=== PATIENT | female | born 1940 | race Caucasian/White ===

== ENCOUNTER 2024-06-24 15:32 | Inpatient (IN) | payer MEDICARE, MEDICAID ==
[~2024-06-24] VITALS: Ht 170.2 cm; Wt 87.9 kg
[2024-06-24 16:28] LABS: BASOPHILS # (AUTO) 0.1 X10'3 (0-0.2); EOSINOPHILS % (AUTO) 0.1 % (0-6); HEMATOCRIT 31.3 % (35.0-45.0); LYMPHOCYTES # (AUTO) 3.4 X10'3 (1.1-4.8); LYMPHOCYTES % (AUTO) 34.4 % (21-51); MEAN CORPUSCULAR HEMOGLOBIN 30.5 PG (27.0-31.0); MEAN CORPUSCULAR HGB CONC 32.1 g/dL (33.0-36.5); MEAN CORPUSCULAR VOLUME 95.2 FL (78-98); MEAN PLATELET VOLUME 7.2 FL (7.4-10.4); MONOCYTES # (AUTO) 1.1 X10'3 (0-0.9); MONOCYTES % (AUTO) 11.2 % (2-12); NEUTROPHILS # (AUTO) 5.3 X10'3 (1.8-7.7); NEUTROPHILS % (AUTO) 53.3 % (42-75); PLATELET COUNT 323 X10'3 (140-440); RED BLOOD COUNT 3.29 X10'6 (4.20-5.60); RED CELL DISTRIBUTION WIDTH 15.1 % (11.5-14.5)
[2024-06-24 16:45] LABS: APTT 31 SECONDS (22-32); INR 1.3 INR; PROTHROMBIN TIME 13.1 SECONDS (9.0-12.0)
[2024-06-24] MEDS: piperacillin/tazo 3.375gm/50ml 50 ML IV STA (16:46)
[2024-06-24] MEDS: morphine 4 MG/ML inj SYRINge IV ONE (16:49)
[2024-06-24 16:50] LABS: ALBUMIN 2.4 G/DL (3.4-5.0); ALBUMIN/GLOBULIN RATIO 0.5 (1.1-1.5); ALKALINE PHOSPHATASE 100 IU/L (46-116); ANION GAP 8 (8-16); ASPARTATE AMINO TRANSFERASE 10 U/L (10-37); BILIRUBIN,TOTAL 1.1 MG/DL (0.1-1.0); BLOOD UREA NITROGEN 13 MG/DL (7-18); BUN/CREATININE RATIO 17.1 (10.0-20.0); CALCIUM 8.7 MG/DL (8.5-10.1); CHLORIDE 102 MMOL/L (99-107); CREATININE 0.76 MG/DL (0.40-0.90); GLUCOSE 98 MG/DL (70-104); POTASSIUM 3.7 MMOL/L (3.5-5.1); SODIUM 135 MMOL/L (135-145); TOTAL CARBON DIOXIDE 25.5 MMOL/L (24-32); TOTAL PROTEIN 7.2 G/DL (6.4-8.2); eCRCL 54 ML/MIN; eGFR 73 ML/MIN
[2024-06-24 16:52] LABS: ALANINE AMINOTRANSFERASE < 6 U/L (12-78)
[2024-06-24] MEDS: normal saline 1000ml 1,000 ML IVB ONE (17:05)
[2024-06-24] MEDS: HYDROmorphone 1 mg/ml syringe IV ONE (17:20)
[2024-06-24] MEDS ORDERED: NO HOME MEDS (17:33)
[2024-06-24] MEDS ORDERED: potassium Cl 20 mEq SR tablet PO PRN (17:40)
[2024-06-24] MEDS ORDERED: magnesium Cl slow-release 64mg tablet PO PRN (17:40)
[2024-06-24] MEDS ORDERED: ondansetron/PF 4mg/2ml inj IV PRN (17:40)
[2024-06-24] MEDS ORDERED: magnesium sulf-water 4G/100mL 100 ML IV PRN (17:40)
[2024-06-24] MEDS ORDERED: potassium Cl 40MEQ/1/2NS 520ml 520 ML IV PRN (17:40)
[2024-06-24] MEDS ORDERED: acetaminophen 325mg tablet PO PRN ×2 (17:40)
[2024-06-24] MEDS ORDERED: magnesium sulf-water 2g/50mL 50 ML IV PRN (17:40)
[2024-06-24] MEDS ORDERED: mag hydrox/Alum hydrox/simeth 30ml oral suspension PO PRN (17:40)
[2024-06-24 18:07] LABS: HEMOGLOBIN A1C 5.5 % (4.5-6.2)
[2024-06-24] MEDS: normal saline 1000ml 1,000 ML IV ONE (18:22)
[2024-06-24] MEDS: morphine 2 MG/ML inj. syringe IV PRN (18:30)
[2024-06-24] MEDS: normal saline 1000ml 1,000 ML IV SCH (19:00)
[2024-06-24] MEDS: metoprolol tartrate 50mg tablet PO ONE (19:08)
[2024-06-24] MEDS ORDERED: ALPRAZolam 0.25mg tablet PO PRN (19:15)
[2024-06-24] MEDS ORDERED: iohexol 300mg/ml 100ml inj. ONE (19:32)
[2024-06-24] MEDS: K and/or MAG REPLACEMENT MC SCH (19:43)
[2024-06-24] MEDS: VANCOMYCIN 1,500MG inj. 1,500 MG in normal saline 500ml IV soln 300 ML IV ONE (20:24)
[2024-06-24] MEDS: heparin, porcine 5000 units/ml vial SQ SCH (20:27)
[2024-06-24] MEDS: ALPRAZolam 0.5mg tablet PO PRN (20:49)
[2024-06-24] MEDS: piperacillin/tazo 3.375gm/50ml 50 ML IV SCH (23:53)
[2024-06-25] VITALS (22 sets, daily range): BP systolic 126–157; BP diastolic 62–92; PULSE 88–116; RESP 15–22; TEMP 97.5–98.1; O2SAT 93–100
[2024-06-25 00:33] LABS: CLARITY,URINE SLIGHTLY CLOUDY (Clear); COLOR,URINE YELLOW (Yellow); UA COLLECTION TYPE CLN CATCH MIDSTREAM
[2024-06-25 00:34] LABS: GLUCOSE, URINE NEGATIVE (Neg); KETONES,URINE NEGATIVE (Neg); PH,URINE >=9.0 (4.8-8.0); PROTEIN,URINE 100 mg/dl (Neg)
[2024-06-25 00:35] LABS: BILIRUBIN,URINE NEGATIVE (Neg); LEUKOCYTE ESTERASE ,URINE SMALL (Neg); NITRITES, URINE POSITIVE (Neg); OCCULT BLOOD,URINE MODERATE (Neg); UROBILINOGEN,URINE 0.2 E.U/dL (0.2-1.0)
[2024-06-25 00:37] LABS: BACTERIA,URINE 4+ /HPF (Neg); SQUAMOUS EPITHELIAL CELL,UR FEW /LPF (FEW); TRANSITIONAL EPI CELLS,URINE FEW /HPF; WBC,URINE 20-30 /HPF (0-4)
[2024-06-25 00:38] LABS: AMORPHOUS PHOSPHATES 1+; TRIPLE PHOSPHATE CRYST 2+ /HPF (NEGATIVE)
[2024-06-25] MEDS: LORazepam 1 MG tablet PO PRN (02:54)
[2024-06-25 02:55] LABS: BASOPHILS % (AUTO) 0.1 % (0-1); EOSINOPHILS % (AUTO) 0.1 % (0-6); HEMATOCRIT 29.2 % (35.0-45.0); HEMOGLOBIN 9.5 g/dl (12.0-16.0); LYMPHOCYTES # (AUTO) 2.8 X10'3 (1.1-4.8); MEAN CORPUSCULAR HEMOGLOBIN 30.6 PG (27.0-31.0); MEAN CORPUSCULAR HGB CONC 32.5 g/dL (33.0-36.5); MEAN CORPUSCULAR VOLUME 94.2 FL (78-98); MEAN PLATELET VOLUME 7.6 FL (7.4-10.4); MONOCYTES % (AUTO) 10.1 % (2-12); NEUTROPHILS % (AUTO) 60.7 % (42-75); PLATELET COUNT 297 X10'3 (140-440); WHITE BLOOD COUNT 9.8 X10'3 (4.5-11.0)
[2024-06-25 03:07] LABS: % IRON SATURATION 11 % (11-46); IRON 22 UG/DL (49-151); TOTAL IRON BINDING CAPACITY 196 UG/DL (259-388)
[2024-06-25 03:12] LABS: ALBUMIN 2.2 G/DL (3.4-5.0); ALBUMIN/GLOBULIN RATIO 0.5 (1.1-1.5); ALKALINE PHOSPHATASE 92 IU/L (46-116); ANION GAP 9 (8-16); ASPARTATE AMINO TRANSFERASE 10 U/L (10-37); BILIRUBIN,TOTAL 0.8 MG/DL (0.1-1.0); BLOOD UREA NITROGEN 12 MG/DL (7-18); BUN/CREATININE RATIO 17.6 (10.0-20.0); CALCIUM 8.2 MG/DL (8.5-10.1); CHLORIDE 103 MMOL/L (99-107); CHOL/HDL RATIO 2.7 (0.00-4.99); CHOLESTEROL 91 MG/DL (0-200); CREATININE 0.68 MG/DL (0.40-0.90); GLUCOSE 87 MG/DL (70-104); HDL CHOLESTEROL 34 MG/DL (35-60); LDL CHOLESTEROL 45 MG/DL (50-100); MAGNESIUM 1.7 MG/DL (1.5-2.4); POTASSIUM 3.7 MMOL/L (3.5-5.1); SODIUM 136 MMOL/L (135-145); TOTAL CARBON DIOXIDE 24.5 MMOL/L (24-32); TOTAL PROTEIN 6.9 G/DL (6.4-8.2); TRIGLYCERIDES 63 MG/DL (20-135); eCRCL 60 ML/MIN; eGFR 82 ML/MIN
[2024-06-25 03:14] LABS: ALANINE AMINOTRANSFERASE < 6 U/L (12-78)
[2024-06-25] MEDS: pantoprazole 40mg Tablet.DR PO SCH (07:30)
[2024-06-25] MEDS: metoprolol tartrate 50mg tablet PO ONE (09:01)
[2024-06-25] MEDS: BUPIVAcaine 2.5mg/ml inj 50ml vial (contains preservative) ONE (12:41)
[2024-06-25] MEDS ORDERED: sevoflurane 250ml liquid IH ONE (13:19)
[2024-06-25] MEDS ORDERED: rocuronium 10mg/ml inj IV ONE (13:24)
[2024-06-25] MEDS ORDERED: fentaNYL/PF 50MCG/1 ML 2ML syringe ONE (13:24)
[2024-06-25] MEDS ORDERED: propofol inj 20 ML IV ONE (13:24)
[2024-06-25] MEDS ORDERED: proCHLORperazine 10 MG/2 ml inj IV PRN (13:40)
[2024-06-25] MEDS ORDERED: ondansetron/PF 4mg/2ml inj IV PRN (13:40)
[2024-06-25] MEDS ORDERED: meperidine/PF 25mg/ml syringe IV PRN ×3 (13:40)
[2024-06-25] MEDS ORDERED: morphine 2 MG/ML inj. syringe IV PRN (13:40)
[2024-06-25] MEDS ORDERED: morphine 4 MG/ML inj SYRINge IV PRN (13:40)
[2024-06-25] MEDS ORDERED: sugammadex 200mg/2ml injection IV ONE (14:11)
[2024-06-25] MEDS: ringers solution, lacted 1,000 ML IV SCH (16:37)
[2024-06-25] MEDS: dextrose 5%-1/2 normal saline 1,000 ML IV SCH (19:49)
[2024-06-25] MEDS: metoprolol tartrate 25mg tablet PO SCH (21:08)
[2024-06-26 02:00] VITALS: BP 135/70; PULSE 88; RESP 16; TEMP 98.2; O2SAT 98
[2024-06-26 05:05] LABS: BASOPHILS % (AUTO) 0.3 % (0-1); EOSINOPHILS % (AUTO) 0.4 % (0-6); HEMOGLOBIN 9.4 g/dl (12.0-16.0); LYMPHOCYTES # (AUTO) 3.1 X10'3 (1.1-4.8); LYMPHOCYTES % (AUTO) 39.5 % (21-51); MEAN CORPUSCULAR HEMOGLOBIN 30.7 PG (27.0-31.0); MEAN CORPUSCULAR HGB CONC 32.4 g/dL (33.0-36.5); MEAN CORPUSCULAR VOLUME 94.5 FL (78-98); MEAN PLATELET VOLUME 7.3 FL (7.4-10.4); MONOCYTES # (AUTO) 0.9 X10'3 (0-0.9); MONOCYTES % (AUTO) 11.2 % (2-12); NEUTROPHILS # (AUTO) 3.7 X10'3 (1.8-7.7); NEUTROPHILS % (AUTO) 48.6 % (42-75); PLATELET COUNT 289 X10'3 (140-440); RED BLOOD COUNT 3.07 X10'6 (4.20-5.60); RED CELL DISTRIBUTION WIDTH 14.9 % (11.5-14.5); WHITE BLOOD COUNT 7.7 X10'3 (4.5-11.0)
[2024-06-26 05:35] LABS: ALANINE AMINOTRANSFERASE 6 U/L (12-78); ALBUMIN 2.1 G/DL (3.4-5.0); ALBUMIN/GLOBULIN RATIO 0.5 (1.1-1.5); ALKALINE PHOSPHATASE 88 IU/L (46-116); ANION GAP 8 (8-16); ASPARTATE AMINO TRANSFERASE 15 U/L (10-37); BILIRUBIN,TOTAL 0.7 MG/DL (0.1-1.0); BLOOD UREA NITROGEN 9 MG/DL (7-18); BUN/CREATININE RATIO 12.5 (10.0-20.0); CALCIUM 8.1 MG/DL (8.5-10.1); CHLORIDE 104 MMOL/L (99-107); CREATININE 0.72 MG/DL (0.40-0.90); GLUCOSE 77 MG/DL (70-104); MAGNESIUM 1.8 MG/DL (1.5-2.4); POTASSIUM 3.5 MMOL/L (3.5-5.1); SODIUM 137 MMOL/L (135-145); TOTAL CARBON DIOXIDE 25.3 MMOL/L (24-32); TOTAL PROTEIN 6.4 G/DL (6.4-8.2); eCRCL 57 ML/MIN; eGFR 77 ML/MIN
[2024-06-26 06:00] VITALS: BP 157/87; PULSE 100; RESP 18; TEMP 98.4; O2SAT 94
[2024-06-26] MEDS: HYDROcodone/acetaminophen 5mg/325mg tablet PO PRN (06:36)
[2024-06-26 10:00] VITALS: BP 160/78; PULSE 92; RESP 20; TEMP 98.3; O2SAT 95
[2024-06-26] MEDS: JUVEN Shake w/Arg/Glut/Ca2+Bmb (Juven 19.3gm) pkt 240ml PO SCH (12:30)
[2024-06-26] MEDS: vancomycin 1,750 MG in NS 350ml IV soln IV ONE (15:11)
[2024-06-26 18:00] VITALS: BP 128/67; PULSE 91; RESP 18; TEMP 97.9; O2SAT 96
[2024-06-26] MEDS: apixaban 5mg tablet PO SCH (19:29)
[2024-06-26 20:00] VITALS: RESP 18; O2SAT 96
[2024-06-26 22:00] VITALS: BP 120/65; PULSE 99; RESP 22; TEMP 98.3; O2SAT 91
[2024-06-27] VITALS (7 sets, daily range): BP systolic 110–127; BP diastolic 65–76; PULSE 69–98; RESP 16–18; TEMP 97–98.2; O2SAT 92–95
[2024-06-27] MEDS: vancomycin/NS 1 GM ADD-VANTAGE 250 ML IV SCH (04:12)
[2024-06-27 06:45] LABS: BASOPHILS % (AUTO) 0.1 % (0-1); EOSINOPHILS # (AUTO) 0.1 X10'3 (0-0.9); EOSINOPHILS % (AUTO) 1.1 % (0-6); HEMATOCRIT 27.5 % (35.0-45.0); LYMPHOCYTES # (AUTO) 2.6 X10'3 (1.1-4.8); MEAN CORPUSCULAR HEMOGLOBIN 30.7 PG (27.0-31.0); MEAN CORPUSCULAR HGB CONC 32.6 g/dL (33.0-36.5); MEAN CORPUSCULAR VOLUME 94.2 FL (78-98); MEAN PLATELET VOLUME 7.2 FL (7.4-10.4); MONOCYTES # (AUTO) 0.6 X10'3 (0-0.9); MONOCYTES % (AUTO) 10.6 % (2-12); NEUTROPHILS # (AUTO) 2.8 X10'3 (1.8-7.7); NEUTROPHILS % (AUTO) 46.2 % (42-75); PLATELET COUNT 286 X10'3 (140-440); RED BLOOD COUNT 2.92 X10'6 (4.20-5.60); WHITE BLOOD COUNT 6.1 X10'3 (4.5-11.0)
[2024-06-27 07:11] LABS: ALANINE AMINOTRANSFERASE 6 U/L (12-78); ALBUMIN 1.9 G/DL (3.4-5.0); ALBUMIN/GLOBULIN RATIO 0.5 (1.1-1.5); ALKALINE PHOSPHATASE 75 IU/L (46-116); ANION GAP 4 (8-16); ASPARTATE AMINO TRANSFERASE 15 U/L (10-37); BILIRUBIN,TOTAL 0.6 MG/DL (0.1-1.0); BLOOD UREA NITROGEN 6 MG/DL (7-18); CALCIUM 7.8 MG/DL (8.5-10.1); CHLORIDE 105 MMOL/L (99-107); CREATININE 0.67 MG/DL (0.40-0.90); FERRITIN 217 NG/ML (8-252); GLUCOSE 95 MG/DL (70-104); MAGNESIUM 1.7 MG/DL (1.5-2.4); POTASSIUM 3.3 MMOL/L (3.5-5.1); SODIUM 136 MMOL/L (135-145); TOTAL CARBON DIOXIDE 26.6 MMOL/L (24-32); TOTAL PROTEIN 6.1 G/DL (6.4-8.2); eCRCL 61 ML/MIN; eGFR 84 ML/MIN
[2024-06-27] MEDS: magnesium hydroxide 30ml (MOM) UD suspension PO PRN (07:30)
[2024-06-27] MEDS: CefTRIAXone/D5W-Rocephin 1gm 50 ML IV SCH (10:26)
[2024-06-27] MEDS ORDERED: iohexol 350MG/ML 100ml bottle IV ONE (12:31)
[2024-06-27] MEDS ORDERED: iohexol 350 MG/ML 50ML vial IV ONE (12:31)
[2024-06-27] MEDS: lactose-reduced food (Ensure Enlive) - 237ml bottle PO SCH (13:10)
[2024-06-27] MEDS: potassium Cl 20 mEq SR tablet PO PRN ×2 (14:02→19:43)
[2024-06-27] MEDS: morphine 2 MG/ML inj. syringe IV ONE (15:05)
[2024-06-27] MEDS ORDERED: potassium Cl 40MEQ/1/2NS 520ml 520 ML IV PRN (17:50)
[2024-06-27] MEDS ORDERED: magnesium sulf-water 4G/100mL 100 ML IV PRN (17:50)
[2024-06-27] MEDS ORDERED: magnesium sulf-water 2g/50mL 50 ML IV PRN (17:50)
[2024-06-27] MEDS ORDERED: potassium Cl 20 mEq SR tablet PO PRN (17:50)
[2024-06-27] MEDS ORDERED: magnesium Cl slow-release 64mg tablet PO PRN (17:50)
[2024-06-28] MEDS ORDERED: VANCOMYCIN LEVEL IV ONE (02:30)
[2024-06-28 06:00] VITALS: PULSE 98; RESP 20; TEMP 97.5; O2SAT 94
[2024-06-28 06:12] LABS: BASOPHILS % (AUTO) 0.3 % (0-1); EOSINOPHILS # (AUTO) 0.1 X10'3 (0-0.9); EOSINOPHILS % (AUTO) 1.3 % (0-6); HEMATOCRIT 27.3 % (35.0-45.0); HEMOGLOBIN 8.9 g/dl (12.0-16.0); LYMPHOCYTES # (AUTO) 2.4 X10'3 (1.1-4.8); LYMPHOCYTES % (AUTO) 50.4 % (21-51); MEAN CORPUSCULAR HEMOGLOBIN 30.5 PG (27.0-31.0); MEAN CORPUSCULAR HGB CONC 32.6 g/dL (33.0-36.5); MEAN CORPUSCULAR VOLUME 93.6 FL (78-98); MEAN PLATELET VOLUME 7.2 FL (7.4-10.4); MONOCYTES # (AUTO) 0.5 X10'3 (0-0.9); MONOCYTES % (AUTO) 11.2 % (2-12); NEUTROPHILS # (AUTO) 1.8 X10'3 (1.8-7.7); NEUTROPHILS % (AUTO) 36.8 % (42-75); PLATELET COUNT 302 X10'3 (140-440); RED BLOOD COUNT 2.92 X10'6 (4.20-5.60); RED CELL DISTRIBUTION WIDTH 14.9 % (11.5-14.5); WHITE BLOOD COUNT 4.8 X10'3 (4.5-11.0)
[2024-06-28 06:20] LABS: ALANINE AMINOTRANSFERASE 8 U/L (12-78); ALBUMIN 1.8 G/DL (3.4-5.0); ALBUMIN/GLOBULIN RATIO 0.4 (1.1-1.5); ALKALINE PHOSPHATASE 77 IU/L (46-116); ANION GAP 2 (8-16); ASPARTATE AMINO TRANSFERASE 15 U/L (10-37); BILIRUBIN,TOTAL 0.4 MG/DL (0.1-1.0); BLOOD UREA NITROGEN 6 MG/DL (7-18); BUN/CREATININE RATIO 8.3 (10.0-20.0); CALCIUM 7.8 MG/DL (8.5-10.1); CHLORIDE 106 MMOL/L (99-107); CREATININE 0.72 MG/DL (0.40-0.90); GLUCOSE 105 MG/DL (70-104); POTASSIUM 3.7 MMOL/L (3.5-5.1); SODIUM 137 MMOL/L (135-145); VANCOMYCIN,TROUGH 9.5 ug/mL (10.0-20.0); eCRCL 57 ML/MIN; eGFR 77 ML/MIN
[2024-06-28 10:00] VITALS: BP 132/70; PULSE 82; RESP 25; TEMP 98.4; O2SAT 96
[2024-06-28] MEDS: LORazepam 0.5 MG tablet PO PRN (14:35)
[2024-06-28] MEDS ORDERED: iohexol 350MG/ML 100ml bottle IV ONE (14:39)
[2024-06-28] MEDS: morphine 2 MG/ML inj. syringe IV PRN (14:43)
[2024-06-28] MEDS: zinc sulfate 220mg capsule PO SCH (16:22)
[2024-06-28] MEDS: gabapentin 400mg capsule PO SCH (16:23)
[2024-06-28] MEDS: MULTIVIT-MIN/FERROUS GLUCONATE 9 MG/15 ML LIQUID PO SCH (16:23)
[2024-06-28 18:00] VITALS: BP 141/78; PULSE 100; RESP 16; TEMP 97.8; O2SAT 94
[2024-06-28] MEDS: ascorbic acid 500mg tablet PO SCH (21:48)
[2024-06-28 22:00] VITALS: BP 138/72; PULSE 82; RESP 16; TEMP 98.2; O2SAT 93
[2024-06-29] MEDS: metroNIDAZOLE-Flagyl 500mg/NS 100 ML IV SCH (00:52)
[2024-06-29 06:00] VITALS: BP 141/75; PULSE 92; RESP 16; TEMP 97.1; O2SAT 94
[2024-06-29 06:48] LABS: BASOPHILS % (AUTO) 0.2 % (0-1); EOSINOPHILS # (AUTO) 0.1 X10'3 (0-0.9); HEMATOCRIT 27.7 % (35.0-45.0); LYMPHOCYTES # (AUTO) 2.3 X10'3 (1.1-4.8); LYMPHOCYTES % (AUTO) 43.4 % (21-51); MEAN CORPUSCULAR HEMOGLOBIN 30.2 PG (27.0-31.0); MEAN CORPUSCULAR HGB CONC 32.4 g/dL (33.0-36.5); MEAN CORPUSCULAR VOLUME 93.4 FL (78-98); MEAN PLATELET VOLUME 7.1 FL (7.4-10.4); MONOCYTES # (AUTO) 0.7 X10'3 (0-0.9); MONOCYTES % (AUTO) 12.1 % (2-12); NEUTROPHILS # (AUTO) 2.3 X10'3 (1.8-7.7); NEUTROPHILS % (AUTO) 43.3 % (42-75); PLATELET COUNT 322 X10'3 (140-440); RED BLOOD COUNT 2.96 X10'6 (4.20-5.60); WHITE BLOOD COUNT 5.4 X10'3 (4.5-11.0)
[2024-06-29 07:05] LABS: ALANINE AMINOTRANSFERASE 7 U/L (12-78); ALBUMIN 1.9 G/DL (3.4-5.0); ALBUMIN/GLOBULIN RATIO 0.4 (1.1-1.5); ALKALINE PHOSPHATASE 86 IU/L (46-116); ANION GAP 4 (8-16); ASPARTATE AMINO TRANSFERASE 13 U/L (10-37); BILIRUBIN,TOTAL 0.5 MG/DL (0.1-1.0); BLOOD UREA NITROGEN 6 MG/DL (7-18); BUN/CREATININE RATIO 8.7 (10.0-20.0); CALCIUM 7.9 MG/DL (8.5-10.1); CHLORIDE 105 MMOL/L (99-107); CREATININE 0.69 MG/DL (0.40-0.90); GLUCOSE 104 MG/DL (70-104); POTASSIUM 3.7 MMOL/L (3.5-5.1); SODIUM 137 MMOL/L (135-145); TOTAL CARBON DIOXIDE 28.3 MMOL/L (24-32); TOTAL PROTEIN 6.3 G/DL (6.4-8.2); eCRCL 59 ML/MIN; eGFR 81 ML/MIN
[2024-06-29 08:55] VITALS: RESP 18
[2024-06-29 10:00] VITALS: BP 123/65; PULSE 88; RESP 18; TEMP 98.7; O2SAT 95
[2024-06-29] MEDS ORDERED: iohexol 350MG/ML 100ml bottle IV ONE (13:13)
[2024-06-29] MEDS ORDERED: iohexol 350 MG/ML 50ML vial IV ONE (13:13)
[2024-06-29] MEDS: LORazepam 2 mg/ml vial IV ONE (13:38)
[2024-06-29] MEDS: morphine 2 MG/ML inj. syringe IV ONE (13:44)
[2024-06-29 22:00] VITALS: BP 127/59; PULSE 100; RESP 17; TEMP 98.7; O2SAT 94
[2024-06-30 08:13] VITALS: BP 130/69; PULSE 98; RESP 17; TEMP 98.2; O2SAT 92
[2024-06-30 10:00] VITALS: BP 102/54; PULSE 96; RESP 18; TEMP 97.7; O2SAT 93
[2024-06-30] MEDS: diphenhydrAMINE 25mg capsule PO ONE (17:49)
[2024-06-30 18:00] VITALS: BP 106/55; PULSE 100; RESP 18; TEMP 98.2; O2SAT 94
[2024-06-30 22:00] VITALS: BP 119/68; PULSE 80; RESP 19; TEMP 98.7; O2SAT 97
[2024-07-01] MEDS: diphenhydrAMINE 25mg capsule PO ONE (04:55)
[2024-07-01 07:18] VITALS: BP 116/63; PULSE 103; RESP 16; TEMP 97.9; O2SAT 91
[2024-07-01 09:06] LABS: BASOPHILS % (AUTO) 0.2 % (0-1); EOSINOPHILS # (AUTO) 0.1 X10'3 (0-0.9); EOSINOPHILS % (AUTO) 1.5 % (0-6); HEMATOCRIT 29.1 % (35.0-45.0); HEMOGLOBIN 9.4 g/dl (12.0-16.0); LYMPHOCYTES # (AUTO) 3.1 X10'3 (1.1-4.8); LYMPHOCYTES % (AUTO) 49.9 % (21-51); MEAN CORPUSCULAR HEMOGLOBIN 30.7 PG (27.0-31.0); MEAN CORPUSCULAR HGB CONC 32.2 g/dL (33.0-36.5); MEAN CORPUSCULAR VOLUME 95.2 FL (78-98); MEAN PLATELET VOLUME 7.3 FL (7.4-10.4); MONOCYTES # (AUTO) 0.9 X10'3 (0-0.9); NEUTROPHILS # (AUTO) 2.1 X10'3 (1.8-7.7); NEUTROPHILS % (AUTO) 34.4 % (42-75); PLATELET COUNT 367 X10'3 (140-440); RED BLOOD COUNT 3.05 X10'6 (4.20-5.60); RED CELL DISTRIBUTION WIDTH 15.5 % (11.5-14.5); WHITE BLOOD COUNT 6.3 X10'3 (4.5-11.0)
[2024-07-01 09:22] LABS: ALANINE AMINOTRANSFERASE 6 U/L (12-78); ALBUMIN 1.8 G/DL (3.4-5.0); ALBUMIN/GLOBULIN RATIO 0.4 (1.1-1.5); ALKALINE PHOSPHATASE 85 IU/L (46-116); ANION GAP 5 (8-16); ASPARTATE AMINO TRANSFERASE 17 U/L (10-37); BILIRUBIN,TOTAL 0.4 MG/DL (0.1-1.0); BLOOD UREA NITROGEN 6 MG/DL (7-18); CALCIUM 7.9 MG/DL (8.5-10.1); CHLORIDE 105 MMOL/L (99-107); CREATININE 0.67 MG/DL (0.40-0.90); GLUCOSE 101 MG/DL (70-104); POTASSIUM 3.8 MMOL/L (3.5-5.1); SODIUM 139 MMOL/L (135-145); TOTAL CARBON DIOXIDE 29.4 MMOL/L (24-32); TOTAL PROTEIN 6.1 G/DL (6.4-8.2); eCRCL 61 ML/MIN; eGFR 84 ML/MIN
[2024-07-01 10:00] VITALS: BP 130/72; PULSE 88; RESP 18; TEMP 98.1; O2SAT 97
[2024-07-01] MEDS: metroNIDAZOLE 500mg tablet PO SCH (15:30)
[2024-07-01 18:00] VITALS: BP 110/58; PULSE 113; RESP 15; TEMP 97.8; O2SAT 95
[2024-07-01 20:00] VITALS: RESP 18; O2SAT 93
[2024-07-01 22:00] VITALS: BP 123/56; PULSE 104; RESP 18; TEMP 98.3; O2SAT 93
[2024-07-02 06:00] VITALS: BP 135/80; PULSE 72; RESP 18; TEMP 98.3; O2SAT 94
[2024-07-02 08:00] VITALS: RESP 18; O2SAT 94
[2024-07-02 10:00] VITALS: BP 121/64; PULSE 81; RESP 16; TEMP 97.7; O2SAT 95
[2024-07-02 12:10] VITALS: RESP 18; O2SAT 94
[2024-07-02 14:33] VITALS: RESP 16
== END 2024-07-02 18:34 | DRG 853 ==
LOC: ER 15:32 → ED HOLD 17:43 → EDBEDREQSVC 06-25 10:33 → EDBEDREQTM 06-25 10:33 → EDBEDREQDT 06-25 10:33 → EDBEDREQ 06-25 10:33 → ORTHO 4S 06-25 16:30
PROVIDERS: ADMIT Internal Medicine; ATTEND Internal Medicine
PROC: BQ2S1ZZ Computerized Tomography (CT Scan) of Left Lower Extremity using Low Osmolar Contrast (ICD-10-PCS; 2024-06-24)
PROC: 0KBN0ZZ Excision of Right Hip Muscle, Open Approach (ICD-10-PCS; 2024-06-25)
PROC: 0JBP0ZZ Excision of Left Lower Leg Subcutaneous Tissue and Fascia, Open Approach (ICD-10-PCS; principal; 2024-06-25 13:19)
PROC: B42H1ZZ Computerized Tomography (CT Scan) of Bilateral Lower Extremity Arteries using Low Osmolar Contrast (ICD-10-PCS; 2024-06-29)
DX: A41.9 Sepsis, unspecified organism (principal); L89.214 Pressure ulcer of right hip, stage 4; M86.8X8 Other osteomyelitis, other site; L03.116 Cellulitis of left lower limb; L03.115 Cellulitis of right lower limb; N39.0 Urinary tract infection, site not specified; D50.8 Other iron deficiency anemias; M60.851 Other myositis, right thigh; F40.00 Agoraphobia, unspecified; I73.9 Peripheral vascular disease, unspecified; I48.91 Unspecified atrial fibrillation; Z74.01 Bed confinement status; Z87.891 Personal history of nicotine dependence
CPT/HCPCS: 36415; 71045; 72170; 73701; 73706; 80053; 80061; 80202; 81001; 82607; 82728; 83036; 83540; 83550; 83605; 83735; 84145; 85025; 85610; 85651; 85730; 87040; 87070; 87075; 87076; 87077; 87088; 87185; 87186; 92508; 92616; 93005; 93925; 97110; 97161; 97530; 97535; 99215; 99285; A4615; A4618; A4649; A5200; A6196; A6209; A6212; A6213; A6222; A6223; A6250; A6253; A6258; A6446; A6449; A7000; G0378; J0696; J1644; J2060; J2270; J2543; J2704; J3010; J3370; J3490; J7030; J7040; J7120; Q0163; Q9967